=== PATIENT | female | born 1960 | race Caucasian/White ===

== ENCOUNTER 2021-10-16 10:07 | Emergency (ER) | payer BC ==
[~2021-10-16] VITALS: Ht 165.1 cm; Wt 95.5 kg
[~2021-10-16 10:07] MED LIST: LORTAB 5/3255 MG PO
[2021-10-16] MEDS ORDERED: TESSALON PERLE100 MG PO (12:18)
[2021-10-16] MEDS ORDERED: TAM75CAP PO (12:18)
[2021-10-16 12:50] VITALS: BP 137/76
== END 2021-10-16 12:50 | disposition home or self-care (01) | DRG 179 ==
LOC: ED 10:07
DX: U07.1 COVID-19 (principal); J10.1 Influenza due to other identified influenza virus with other respiratory manifestations; I10 Essential (primary) hypertension; E11.9 Type 2 diabetes mellitus without complications; M06.9 Rheumatoid arthritis, unspecified